=== PATIENT | female | born 1985 | race Two or more races ===

== ENCOUNTER 2025-04-13 14:02 | Emergency (ER) | payer OTHER ==
[~2025-04-13] VITALS: Ht 170.2 cm; Wt 75.0 kg
[2025-04-13 14:04] VITALS: BP 122/77; RESP 16; TEMP 98.5; O2SAT 96
[2025-04-13 14:36] VITALS: PULSE 95
--- NOTE | 2025-04-13 14:36 | ED.PDOC ---
History of Present Illness HPI Comments A 39 year-old female presents to the ED with a chief complaint of lightheadedness with associated nausea S/P blacking out 1.5 hours ago. Patient reports feeling a "jolt" throughout her body when she "blacked out." Patient has no further complaints at this time and otherwise denies further associated symptoms of chest pain, migraine, palpitations, emesis, or blurred vision. 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 History Family History Family History: Reviewed,noncontributory to illness, No family hx of Cancer, No family hx of DM, No family hx of Heart shantel, No family hx of HTN, No family hx ofKidney shantel, No family hx of Liver shantel, No family hx of Lung shantel, No family hx of Stroke Social History Smoker: Non-Smoker Alcohol: Denies ETOH Use Drugs: Denies Drug Use Lives In: Home Constitutional: reports: others (lightheaded ); denies: chills, diaphoresis, fatigue, fever, malaise, sweats, weakness EENTM: denies: blurred vision, double vision, ear bleeding, ear discharge, ear drainage, ear pain, ear ringing, eye pain, eye redness, hearing loss, mouth pain, mouth swelling, nasal discharge, nose bleeding, nose congestion, nose pain, photophobia, tearing, throat pain, throat swelling, voice changes, others Respiratory: denies: cough, hemoptysis, orthopnea, SOB at rest, shortness of breath, SOB with excertion, stridor, wheezing, others Cardiovascular: denies: chest pain, dizzy spells, diaphoresis, Dyspnea on exertion, edema, irregular heart beat, left arm pain, lightheadedness, palpitations, PND, syncope, others Gastrointestinal: reports: nausea; denies: abdomen distended, abdominal pain, blood streaked bowels, constipated, diarrhea, dysphagia, difficulty swallowing, hematemesis, melena, poor appetite, poor fluid intake, rectal bleeding, rectal pain, vomiting, others Genitourinary: denies: abnormal vagina bleeding, burning, dyspareunia, dysuria, flank pain, frequency, hematuria, incontinence, pain, , vagina discharge, urgency, others Neurological: denies: dizziness, fainting, headache, left sided numbness, left sided weakness, numbness, paresthesia, pre-existing deficit, right sided numbness, right sided weakness, seizure, speech problems, tingling, tremors, weakness, others Musculoskeletal: denies: back pain, gout, joint pain, joint swelling, muscle pain, muscle stiffness, neck pain, others Integumetry: denies: bruises, change in color, change in hair/nails, dryness, laceration, lesions, lumps, rash, wounds, others Allergic/Immunocompromised: denies: Difficulty Healing, Frequent Infections, Hives, Itching, others Hematologic/Lymphatic: denies: anemia, blood clots, easy bleeding, easy bruising, swollen glands, others Endocrine: denies: excessive hunger, excessive sweating, excessive thirst, excessive urination, flushing, intolerance to cold, intolerance to heat, unexplained weight gain, unexplained weight loss, others Psychiatric: denies: anxiety, bipolar disorder, depression, hopeless, panic disorder, schizophrenia, sleepless, suicidal, others All Other Systems: Reviewed and Negative Physical Exam General Appearance: Mild Distress, Normal HEENT: Normal ENT Inspection, Pharynx Normal, TMs Normal Neck: Full Range of Motion, Non-Tender, Normal, Normal Inspection Respiratory: Chest Non-Tender, Lungs Clear, No Accessory Muscle Use, No Res piratory Distress, Normal Breath Sounds Cardiovascular: No Edema, No JVD, No Murmur, No Gallop, Normal Peripheral Pulses, Regular Rate/Rhythm Breast Exam: Deferred Gastrointestinal: No Organomegaly, Non Tender, No Pulsatile Mass, Normal Bowel Sounds, Soft Genitalia: Deferred Pelvic: Deferred Rectal: Deferred Extremities: No calf tenderness, Normal capillary refill, Normal inspection, Normal range of motion, Non-tender, No pedal edema Musculoskeletal : Apperance: Normal Neurologic: Alert, 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 Was a procedure done?: No EKG EKG : Pulse Rate (adult): 95 [place]: Normal Cardiac Rhythm: NSR Block: None Hypertrophy: None ST: Normal Differential Dx Considerations may include: Near Syncope, Anemia, Dehydration X-Ray, Labs, Meds, VS Vital Signs Date Time Temp Pulse Resp B/P (MAP) Pulse Ox O2 Delivery O2 Flow Rate FiO2 04/13/25 14:36 95 04/13/25 14:18 95 04/13/25 14:04 98.5 103 16 122/77 96 98.5 Lab Test 04/13/25 14:09 Range/Units POC Glucose 120 H 70-106 mg/dl Patient alert. No sign distress. Ambulating without difficulty. Vitals stable. Good muscle strength. Neurological examination pristine. States that she is feeling better. No trauma. No coagulopathy. CT of the head was not done because physical examination was pristine. Explained to the patient. Was told to follow up with her primary care physician. Was told to come back if any problem. Time of 1ST Reevaluation: 17:46 Reevaluation 1ST: Improved Patient Education/Counseling: Diagnosis, Treatment Family Education/Counseling: No Family Present SEPSIS Sepsis Screen Date sepsis recognized/suspect: Apr 13, 2025 Time Sepsis recognized/suspect: 1504 Recent Procedure: No On Antibiotic Therapy: No Respiratory Rate >20: No Heart Rate >90: Yes Temp<36 C (96.8 F) or >38.3 C: No SBP <90 or MAP <65 mmHG: No New Acute Mental Status Change: No Is the patient on CPAP, BIPAP,: No Physician Orders Electrocardigram (04/13/25 14:48) Vital Signs Date Time Temp Pulse Resp B/P (MAP) Pulse Ox O2 Delivery O2 Flow Rate FiO2 04/13/25 14:36 95 04/13/25 14:18 95 04/13/25 14:04 98.5 103 16 122/77 96 98.5 Departure 1 Departure Time of Disposition: 17:48 Impression: Primary Impression: Stress reaction Disposition: 01 HOME / SELF CARE / HOMELESS Condition: Stable Discharged With: Self Critical Care Note Critical Care Time?: No Stability Stability form required: No Heart Score Heart Score: Heart Score Response (Comments) Value History Slightly Suspicious 0 EKG Normal 0 Age <45 0 Risk Factors No known risk factors 0 Troponin N/A 0 Total 0 I personally scribed for DAVID CALVO MD ([facility]) on 04/13/25 at 14:36. Electronically submitted by Maritza Rivers ([facility]). DAVID CALVO MD Apr 13, 2025 14:36
--- NOTE | 2025-04-16 06:35 | ECG ---
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
== END 2025-04-13 15:32 | disposition left against medical advice (07) ==
LOC: ER 14:05
DX: F43.9 Reaction to severe stress, unspecified (principal)
CPT/HCPCS: 82947; 82962; 93005